=== PATIENT | male | born 1985 | race African-American/Black ===

== ENCOUNTER 2018-11-19 20:34 | Emergency (ER) | payer MEDICAID ==
[~2018-11-19] VITALS: Ht 195.6 cm; Wt 143.2 kg
[2018-11-19] MEDS ORDERED: ACETAMINOPHEN 325 MG TABLET ONE (20:55)
[2018-11-19 20:58] LABS: BASOPHILS # (AUTO) 0.02 x10^3/uL (0-0.1); BASOPHILS % (AUTO) 0 % (0-1); EOSINOPHILS # (AUTO) 0.32 x10^3/uL (0-0.4); EOSINOPHILS % (AUTO) 5 % (1-7); LYMPHOCYTES # (AUTO) 1.03 x10^3/uL (1-3.4); LYMPHOCYTES % (AUTO) 15 % (22-44); MD NO; MEAN CORPUSCULAR HEMOGLOBIN 29.5 pg (27.5-34.5); MEAN CORPUSCULAR HGB CONC 33.2 g/dL (33.2-36.2); MEAN CORPUSCULAR VOLUME 88.8 fL (81-97); MEAN PLATELET VOLUME 7.3 fL (7.4-10.4); MONOCYTES # (AUTO) 0.75 x10^3/uL (0.2-0.8); MONOCYTES % (AUTO) 11 % (2-9); NEUTROPHILS # (AUTO) 4.72 x10^3/uL (1.8-6.8); NEUTROPHILS % (AUTO) 69 % (42-75); PLATELET COUNT 245 x10^3/uL (130-400); RED BLOOD COUNT 5.16 x10^6/uL (4.38-5.82); RED CELL DISTRIBUTION WIDTH 14.1 % (9.4-14.8)
[2018-11-19] MEDS ORDERED: ACETAMINOPHEN 325 MG TABLET PO ONE (21:00)
[2018-11-19 21:11] LABS: ALBUMIN 3.3 g/dL (3.4-5.0); ANION GAP 7 mmol/L (5-15); CALCIUM 8.8 mg/dL (8.5-10.1); CHLORIDE 100 mmol/L (98-107)
[2018-11-19 21:13] LABS: ALANINE AMINOTRANSFERASE 80 U/L (12-78); ALKALINE PHOSPHATASE 90 U/L (45-117); BILIRUBIN,TOTAL 0.3 mg/dL (0.2-1.0); CREATININE 1.28 mg/dL (0.7-1.3); TOTAL PROTEIN 7.8 g/dL (6.4-8.2)
--- NOTE | 2018-11-19 21:29 | NUR ---
TOM JENSEN AND DR. SCHULTZ AT FOR EVAL.
[2018-11-19] MEDS ORDERED: CEPHALEXIN 500 MG CAPSULE PO ONE (21:30)
[2018-11-19] MEDS ORDERED: CEPHALEXIN 500 MG CAPSULE ONE (21:32)
[2018-11-19] MEDS ORDERED: IBUPROFEN 800 MG TABLET ONE (21:55)
[2018-11-19 21:58] VITALS: BP 128/75
[2018-11-19] MEDS ORDERED: IBUPROFEN 800 MG TABLET PO ONE (22:00)
== END 2018-11-19 22:10 | disposition home or self-care (01) ==
LOC: ED 21:48
DX: L03.113 Cellulitis of right upper limb (principal); L03.114 Cellulitis of left upper limb; L50.0 Allergic urticaria
CPT/HCPCS: 36415; 80053; 85025; 99284; J7512

== ENCOUNTER 2018-12-09 14:36 | Inpatient (IN) | payer MEDICAID ==
[~2018-12-09] VITALS: Ht 195.6 cm; Wt 135.1 kg
[~2018-12-09 14:36] MED LIST: VANCOMYCIN 2,000 MG in SODIUM CHLORIDE 0.9% 500 ML IV SCH
--- NOTE | 2018-12-09 15:52 | NUR ---
CONTACT WITH PT. PT MOVED TO ROOM 18. IV STARTED.
[2018-12-09] MEDS ORDERED: PROPARACAINE OPHTH 0.5%, 15ML ONE (15:54)
[2018-12-09 15:59] LABS: BASOPHILS # (AUTO) 0.03 x10^3/uL (0-0.1); BASOPHILS % (AUTO) 1 % (0-1); EOSINOPHILS # (AUTO) 0.29 x10^3/uL (0-0.4); EOSINOPHILS % (AUTO) 6 % (1-7); LYMPHOCYTES # (AUTO) 0.84 x10^3/uL (1-3.4); LYMPHOCYTES % (AUTO) 17 % (22-44); MD NO; MEAN CORPUSCULAR HEMOGLOBIN 28.9 pg (27.5-34.5); MEAN CORPUSCULAR HGB CONC 33.1 g/dL (33.2-36.2); MEAN CORPUSCULAR VOLUME 87.4 fL (81-97); MEAN PLATELET VOLUME 7.2 fL (7.4-10.4); MONOCYTES % (AUTO) 12 % (2-9); NEUTROPHILS # (AUTO) 3.28 x10^3/uL (1.8-6.8); NEUTROPHILS % (AUTO) 65 % (42-75); PLATELET COUNT 282 x10^3/uL (130-400); RED BLOOD COUNT 5.25 x10^6/uL (4.38-5.82); RED CELL DISTRIBUTION WIDTH 14.1 % (9.4-14.8)
[2018-12-09] MEDS ORDERED: VANCOMYCIN PER PHARMACY MC ONE (16:00)
[2018-12-09] MEDS ORDERED: VANCOMYCIN 2,000 MG in SODIUM CHLORIDE 0.9% 500 ML IV ONE (16:00)
--- NOTE | 2018-12-09 16:04 | NUR ---
33 YR OLD MALE HERE WITH C/O TATTO SKIN INFECTION TO PRIYANKA ARMS. HAS COMPLETED A COURSE OF ABX. ALSO WITH C/O PRIYANKA EYE REDNESS, WHEN WAKES UP IN THE MORNING, "EYE LIDS ARE PUFFY AND SENSITIVE TO LIGHT" IV ABX STARTED, BLOOD CULTURE X1 IN LAB, PINK ARMBAND IN PLACE. PT AWARE OF ABX TAKES APPROX 2 HOURS TO INFUSE. PT TO BE PROVIDE WITH PO FLUIDS. NO OTHER NEEDS AT THIS TIME.
[2018-12-09 16:07] LABS: ALANINE AMINOTRANSFERASE 70 U/L (12-78); ALBUMIN 3.5 g/dL (3.4-5.0); ANION GAP 6 mmol/L (5-15); CALCIUM 9.2 mg/dL (8.5-10.1); CHLORIDE 102 mmol/L (98-107); CREATININE 1.06 mg/dL (0.7-1.3)
[2018-12-09 16:10] LABS: ALKALINE PHOSPHATASE 59 U/L (45-117); BILIRUBIN,TOTAL 0.6 mg/dL (0.2-1.0); TOTAL PROTEIN 8.1 g/dL (6.4-8.2)
--- NOTE | 2018-12-09 16:54 | NUR ---
IV ABX INFUSING WITHOUT REDNESS/SWELLING, NO ADVERSE REACTION NOTED. PT PROVIDED WITH PO FLUIDS. NO OTHER NEEDS EXPRESSED AT THIS TIME.
--- NOTE | 2018-12-09 17:26 | NUR ---
REPORT CALLED TO [facility]. POC DISCUSSED.
[2018-12-09 18:07] VITALS: BP 170/85
[2018-12-09] MEDS ORDERED: LIDODERM 5% PATCH TD PRN (19:00)
[2018-12-09] MEDS ORDERED: DOCUSATE 100 MG CAPSULE PO PRN (19:00)
[2018-12-09] MEDS ORDERED: hydrALAzine 20 MG/ML, 1ML IVPush PRN (19:00)
[2018-12-09] MEDS ORDERED: ONDANSETRON ODT 4 MG PO PRN (19:00)
[2018-12-09] MEDS ORDERED: VANCOMYCIN PER PHARMACY MC PRN (19:00)
[2018-12-09] MEDS ORDERED: PHARMACOKINETIC CONSULTATION MC ONE (19:30)
[2018-12-09] MEDS ORDERED: PHARMACOKINETIC MONITORING MC PRN (19:30)
[2018-12-09 19:31] VITALS: BP 143/89
[2018-12-09] MEDS: DIPHENHYDRAMINE 25 MG CAPSULE PO PRN (20:59)
[2018-12-09] MEDS: GABAPENTIN 300 MG CAPSULE PO PRN (20:59)
[2018-12-09] MEDS: CIPROFLOXACIN OPHTH SOLN 0.3%, 5ML RIGHTEYE SCH (21:00)
[2018-12-09] MEDS: predniSONE 50MG TABLET PO SCH (21:01)
[2018-12-09] MEDS ORDERED: POLYTRIM OPHTH 10ML EACHEYE STA (22:18)
[2018-12-10 02:55] VITALS: BP 145/88
[2018-12-10] MEDS: GABAPENTIN 300 MG CAPSULE PO PRN ×2 (04:24→16:34)
[2018-12-10 05:40] LABS: BASOPHILS % (AUTO) 0 % (0-1); EOSINOPHILS % (AUTO) 0 % (1-7); LYMPHOCYTES % (AUTO) 8 % (22-44); MD NO; MEAN CORPUSCULAR HEMOGLOBIN 28.9 pg (27.5-34.5); MEAN CORPUSCULAR HGB CONC 33.3 g/dL (33.2-36.2); MEAN CORPUSCULAR VOLUME 86.9 fL (81-97); MEAN PLATELET VOLUME 7.7 fL (7.4-10.4); MONOCYTES # (AUTO) 0.16 x10^3/uL (0.2-0.8); MONOCYTES % (AUTO) 3 % (2-9); NEUTROPHILS # (AUTO) 5.53 x10^3/uL (1.8-6.8); NEUTROPHILS % (AUTO) 89 % (42-75); PLATELET COUNT 280 x10^3/uL (130-400); RED BLOOD COUNT 5.19 x10^6/uL (4.38-5.82); RED CELL DISTRIBUTION WIDTH 14.2 % (9.4-14.8)
[2018-12-10 05:47] LABS: CALCIUM 9.2 mg/dL (8.5-10.1); CHLORIDE 103 mmol/L (98-107)
[2018-12-10 05:51] LABS: ANION GAP 9 mmol/L (5-15)
[2018-12-10 06:47] VITALS: BP 129/79
[2018-12-10] MEDS: predniSONE 50MG TABLET PO SCH (08:15)
[2018-12-10] MEDS: AMPICILLIN/SULBACTAM 3 GM in SODIUM CHLORIDE 0.9% 100 ML IV SCH ×3 (08:16→19:32)
[2018-12-10 08:35] LABS: HCT (SEDRATE) 46.2 % (39.2-51.8)
[2018-12-10] MEDS: CIPROFLOXACIN OPHTH SOLN 0.3%, 5ML RIGHTEYE SCH ×2 (08:46→21:18)
[2018-12-10 12:40] VITALS: BP 136/87
[2018-12-10] MEDS: VANCOMYCIN 2,000 MG in SODIUM CHLORIDE 0.9% 500 ML IV SCH ×2 (12:44→21:17)
[2018-12-10] MEDS: ACETAMINOPHEN 325 MG TABLET PO PRN ×2 (14:38→21:18)
[2018-12-10 19:46] VITALS: BP 150/90
[2018-12-10] MEDS: DIPHENHYDRAMINE 25 MG CAPSULE PO PRN (21:18)
[2018-12-11] MEDS: AMPICILLIN/SULBACTAM 3 GM in SODIUM CHLORIDE 0.9% 100 ML IV SCH ×3 (00:57→13:16)
[2018-12-11 01:17] VITALS: BP 142/86
[2018-12-11] MEDS: VANCOMYCIN 2,000 MG in SODIUM CHLORIDE 0.9% 500 ML IV SCH ×2 (05:38→14:01)
[2018-12-11 06:49] VITALS: BP 133/87
[2018-12-11] MEDS: predniSONE 50MG TABLET PO SCH (07:43)
[2018-12-11] MEDS: CIPROFLOXACIN OPHTH SOLN 0.3%, 5ML RIGHTEYE SCH (07:43)
[2018-12-11] MEDS ORDERED: AQUAPHOR NATURAL HEALING OINT 50GM TP SCH (11:00)
[2018-12-11] MEDS ORDERED: ACID1TAB3 PO (11:20)
[2018-12-11] MEDS ORDERED: METH4TAB2 PO (11:20)
[2018-12-11] MEDS ORDERED: AMOX1TAB64 PO (11:20)
[2018-12-11] MEDS ORDERED: CIPR2.5D RIGHTEYE (11:20)
[2018-12-11] MEDS ORDERED: DOXY100T9 PO (11:20)
[2018-12-11 12:15] VITALS: BP 132/83
[2018-12-12] MEDS ORDERED: VANCOMYCIN 2,000 MG in SODIUM CHLORIDE 0.9% 500 ML IV SCH (08:00)
== END 2018-12-11 16:57 | disposition home or self-care (01) | DRG 603 ==
LOC: ED 15:00 → EDIP 17:10 → 3NE 17:50 → DCLOUNGE 12-11 16:47
PROVIDERS: ADMIT Hospitalist; ATTEND Hospitalist
DX: L03.113 Cellulitis of right upper limb (principal); L25.9 Unspecified contact dermatitis, unspecified cause; L03.114 Cellulitis of left upper limb; H10.31 Unspecified acute conjunctivitis, right eye; F17.210 Nicotine dependence, cigarettes, uncomplicated; I10 Essential (primary) hypertension; R00.0 Tachycardia, unspecified; Z82.5 Family history of asthma and other chronic lower respiratory diseases
CPT/HCPCS: 36415; 70450; 71046; 80048; 80053; 80074; 80202; 83605; 84145; 85025; 85651; 86038; 86140; 86430; 87040; 87070; 87205; 96374; 99285; G0378; J0295; J3370; J7040; J7512; Q0163

== ENCOUNTER 2020-07-01 13:52 | Emergency (ER) | payer MEDICAID ==
[~2020-07-01] VITALS: Ht 193 cm; Wt 137.7 kg
[~2020-07-01 13:52] MED LIST changes: +ACID1TAB3 PO; +AMOX1TAB64 PO; +CIPR2.5D2 RIGHTEYE; +DOXY-162 PO; +METH4TAB2 PO; -VANCOMYCIN 2,000 MG in SODIUM CHLORIDE 0.9% 500 ML IV SCH
[2020-07-01 14:00] VITALS: BP 158/98
[2020-07-01] MEDS ORDERED: FAMOTIDINE 20 MG TABLET PO ONE (14:30)
[2020-07-01 14:40] LABS: BASOPHILS % (AUTO) 1 % (0-1); EOSINOPHILS % (AUTO) 2 % (1-7); LYMPHOCYTES % (AUTO) 26 % (22-44); MEAN CORPUSCULAR HEMOGLOBIN 30.4 pg (27.5-34.5); MEAN CORPUSCULAR HGB CONC 34.1 g/dL (33.2-36.2); MEAN PLATELET VOLUME 7.9 fL (7.4-10.4); MONOCYTES % (AUTO) 11 % (2-9); NEUTROPHILS % (AUTO) 60 % (42-75); PLATELET COUNT 365 x10^3/uL (130-400); RED BLOOD COUNT 5.14 x10^6/uL (4.38-5.82)
[2020-07-01 14:43] LABS: ALBUMIN 3.6 g/dL (3.4-5.0); ANION GAP 8 mmol/L (5-15); CHLORIDE 107 mmol/L (98-107); MD NO
[2020-07-01 14:44] LABS: CREATININE 1.15 mg/dL (0.7-1.3)
--- NOTE | 2020-07-01 15:17 | NUR ---
[employer] DEVEL[employer]; PT TO ROOM FROM LOBBY
[2020-07-01] MEDS ORDERED: FAMOTIDINE 20 MG TABLET ONE (15:28)
[2020-07-01] MEDS ORDERED: hydrOXyzine 50MG TABLET ONE (15:29)
== END 2020-07-01 16:20 | disposition home or self-care (01) ==
LOC: ED 14:20
DX: L03.114 Cellulitis of left upper limb (principal); L03.113 Cellulitis of right upper limb; F17.200 Nicotine dependence, unspecified, uncomplicated
CPT/HCPCS: 36415; 80048; 82040; 85025; 99284; J7512; Q0177